=== PATIENT | female | born 1970 | race Caucasian/White ===

== ENCOUNTER 2021-01-12 12:43 | Outpatient (CLI) | payer BC, OTHER ==
--- NOTE | 2021-01-12 13:18 | XRAY Report ---
PROCEDURE: Hand 3 View LT INDICATIONS: CRUSHING INJURY OF LEFT HAND TECHNIQUE: 3 views of the hand(s) acquired. COMPARISON: None FINDINGS: Bones: No fractures or dislocations. No suspicious bony lesions. Mild degenerative changes are see n. Soft tissues: No suspicious soft tissue calcifications. IMPRESSION: No definite, displaced fractures are seen. If there is focal tenderness (or other strong clinical concern for a fracture that is not seen on thi s plain film study) then please consider a dedicated CT for further evaluation. Reviewed by: Edward Mora MD on 01/12/2021 12:17 PM JOAQU[facility]N Approved by: Edward Mora MD on 01/12/2021 12:17 PM JOAQU[facility]N Station ID: [id number]
== END 2021-01-12 23:59 | disposition home or self-care (01) ==
LOC: EDBD → DI.S 12:43
PROVIDERS: ATTEND Physician Assistant Medical
DX: S67.22XA Crushing injury of left hand, initial encounter (principal)